=== PATIENT | female | born 1985 | race Hispanic/Latino ===

== ENCOUNTER 2019-06-03 21:50 | Emergency (ER) | payer OTHER ==
[2019-06-03] MEDS ORDERED: IBUPROFEN 600 MG TABLET ONE (22:16)
[2019-06-03] MEDS ORDERED: ACETAMINOPHEN EXTRA STRENGTH 500 MG TABLET ONE (22:16)
== END 2019-06-03 22:30 ==
LOC: EDH 21:50
DX: F43.9 Reaction to severe stress, unspecified (principal); I10 Essential (primary) hypertension; M19.90 Unspecified osteoarthritis, unspecified site; Z72.0 Tobacco use